=== PATIENT | male | born 1950 | race Caucasian/White ===

== ENCOUNTER 2018-05-04 07:51 | Outpatient (CLI) | payer MEDICARE, SELFPAY | END 2018-05-04 08:11 | PROVIDERS: PCP Family Medicine; Visit Provider Student in an Organized Health Care Education/Training Program | DX: M17.12 Unilateral primary osteoarthritis, left knee (principal) | CPT/HCPCS: 99204; 99214 ==

== ENCOUNTER 2018-05-08 09:23 | Emergency (ER) | payer OTHER, MEDICARE, SELFPAY ==
[2018-05-08 09:31] VITALS: BP 156/84; PULSE 79; RESP 18; TEMP 36.5; O2SAT 98
--- NOTE | 2018-05-08 09:56 | W.ED.GENAD ---
Discharge Plan Disposition Patient Disposition: HOME Condition: Fair Discharge Details Chief Complaint: Nk/Back Pain Clinical Impression: Fracture of rib of left side Primary Care Provider: Chung Escoto ED Provider: Subha Novoa Home Meds and New Rx's Prescriptions: New acetaminophen [Tylenol Extra Strength] 500 mg tablet 1,000 mg PO TID PRN (Reason: pain) Qty: 20 RF: 0 ibuprofen 600 mg tablet 600 mg PO QID PRN (Reason: pain) Qty: 20 RF: 0 oxycodone 5 mg tablet 5 mg PO Q6H PRN (Reason: pain) Qty: 10 RF: 0 Continue aspirin [Ecotrin Low Strength] 81 MG tablet,delayed release (DR/EC) 1 tab PO DAILY RF: 0 clindamycin HCl 300 MG capsule 1 cap PO DIRECTED Qty: 2 RF: 3 Atorvastatin Calcium 20 MG tablet 20 mg PO DAILY Qty: 90 RF: 4 Metoprolol Succinate [Toprol Xl] 50 MG TAB.ER.24H 1 tab PO DAILY Qty: 90 RF: 4 nystatin 1 EACH powder 1 tsp PO QID Qty: 120 RF: 1 calcium carbonate-mag hydroxid [Rolaids] 1 TAB tablet,chewable 1 tab PO PRN PRNRF: 0 Discontinued acetaminophen [Tylenol Extra Strength] 500 MG tablet 2 tab PO PRN RF: 0 Discharge Instructions Instructions: Oxycodone, Rapid Release (By mouth), Rib Fracture (ED) Additional Instructions: Encourage hydration. Tylenol and/or ibuprofen as needed as prescribed. Oxycodone as prescribed. Please take this only as prescribed and keep this in a safe place. You may not drive while taking this medication. Today to schedule appointment for next week. Please use incentive spirometer as instructed by respiratory therapy. No shortness of breath, difficulty breathing, fever/chills or other new/worsening symptoms please seek care urgently once again. Stand Alone Forms: Work Release Referrals: Chung Escoto MD [Primary Care Provider] - ( ) Discharge Data Discharge Date/Time-TO BE ENTERED AT DEPARTURE: 05/08/18 11:45 Medical Decision Making Patient is 67-year-old gentleman, accompanied by his , with chief complaint of left-sided back pain. He reports that 2 days ago he slipped in the leaves outside and fell landing on the afflicted area. He denies any altered sensation. No change in bowel or bladder habits. Denies any difficulty breathing but does endorse discomfort when blowing his nose or coughing. On exam, patient has a focal area of swelling approximate the 8 cm x 5 cm in diameter. No ecchymosis or discoloration. No rash. Lungs are clear in all medina. Area of swelling and maximal tenderness is quite focal over the posterior aspect of the ribs running from approximately the fourth rib through the seventh ribs. No pain elicited with AP or lateral chest wall compression. No CVA tenderness. Sensation is intact in extremities, no saddle paresthesias. 5 out of 5 strength equal bilaterally in the lower extremities. Patient appears quite comfortable when he is sitting. However, when I was trying to have the patient perform range of motion exercises his legs suddenly buckled. He reports that this is from a sharp pain in the focal areas described above. Patient is taking 400 mg of ibuprofen intermittently over the past 2 days. Plan to augment this with further anti-inflammatory, Lidoderm patch, Tylenol and oral oxycodone. Will reassess the patient after this. Plan to obtain x-ray of the patient's left ribs as I am concerned for possible fracture X-ray reviewed by radiologist. Notable for a nondisplaced left posterolateral sixth rib fracture. Lungs are expanded with no pneumothorax noted After patient received above medication, he reports that his pain is a 2/10. Patient is more comfortable. Patient I discussed imaging finding as well as expected course and pathology. Patient will be given an incentive spirometer and taught to use this by respiratory therapy. Encourage deep breathing. Encourage hydration. Advised Tylenol and/or ibuprofen as needed for discomfort. We discussed topical patches that may help with symptomatic management. Patient will be prescribed oxycodone. We did discuss the risk/benefits and safety associated with this medication. Advise follow-up with primary care next week. 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 At this point, patient will not tolerate this. He will be cleared from work until reevaluated by his primary care at which time the patient is hoping to be able to go back light duty. We discussed new/worsening symptoms when to seek care urgently once again. All his questions and concerns were addressed and he is in agreement this plan. HPI General Mode of arrival: ambulatory. Date/Time Provider Initiated Documentation: 05/08/18 09:40. Limitations to Documentation: no limitations. Information obtained by: patient and family. History of Present Illness 67 year old M presents to the emergency department with the chief complaint of left posterior rib pain, described as severe, with intensity rated at 10. Quality is described as stabbing, and is localized to the back. Patient reports no radiation; denies neck, extremity, abdomen and flank. Patient started experiencing this day(s) (2) and it has been constant. Immobilization improves symptom(s), Movement worsens symptoms . Patient notes no other symptoms.; denies chest pain, cough, diaphoresis, fever/chills, headaches, loss of appetite, malaise, nausea/vomiting, rash, shortness of breath and syncope. Patient did receive the following treatments prior to arrival, NSAID (400mg Ibuprofen) Related Data Home Medications Medication Instructions Recorded Confirmed aspirin [Ecotrin Low Strength] 1 tab PO DAILY tab-cap 11/13/12 05/08/18 clindamycin HCl 1 cap PO DIRECTED #2 cap 09/02/14 05/08/18 calcium carbonate-mag hydroxid 1 tab PO PRN PRN 09/09/14 05/08/18 [Rolaids] nystatin 1 tsp PO QID #120 ml 10/16/17 05/08/18 acetaminophen [Tylenol Extra 1,000 mg PO TID PRN #20 tab 05/08/18 Strength] ibuprofen 600 mg PO QID PRN #20 tab 05/08/18 oxycodone 5 mg PO Q6H PRN #10 tab 05/08/18 Previous Rx's Medication Instructions Recorded nystatin 1 tsp PO QID #120 ml 10/16/17 acetaminophen [Tylenol Extra 1,000 mg PO TID PRN #20 tab 05/08/18 Strength] ibuprofen 600 mg PO QID PRN #20 tab 05/08/18 oxycodone 5 mg PO Q6H PRN #10 tab 05/08/18 Allergies Allergy/AdvReac Type Severity Reaction Status Date / Time amoxicillin AdvReac Mild diarrhea Unverified 05/08/18 10:15 General Stated Complaint: Nk/Back Pain LIBBY: 4 Review of Systems Constitutional Reports as per HPI, Denies chills, Denies fatigue, Denies fever(s), Denies headache(s) and Denies weakness ENT Denies vertigo, Denies dizziness and Denies headache(s) Cardiovascular Reports as per HPI, Denies chest pain, Denies syncope, Denies lightheadedness, Denies dyspnea and Denies dyspnea on exertion Respiratory Reports as per HPI, Denies cough, Reports pain on inspiration, Reports pain with cough, Denies dyspnea and Denies dyspnea on exertion Gastrointestinal Denies abdominal pain, Denies change in stool character, Denies nausea and Denies vomiting Genitourinary Denies urinary hesitancy and Denies urinary incontinence Musculoskeletal Reports as per HPI, Denies abnormal gait, Denies numbness and Denies tingling Integumentary/Breasts Denies lesions, Denies erythema, Denies rash and Reports skin swelling Neurologic Denies abnormal gait, Denies vertigo, Denies dizziness, Denies syncope, Denies headache(s), Denies lack of coordination, Denies numbness, Denies radicular pain, Denies sensory deficit, Denies tingling, Denies paresthesias and Denies weakness Endocrine Denies fatigue PFSH Family History Mother Essential hypertension Father COPD (chronic obstructive pulmonary disease) Grandfather Personal history of malignant neoplasm Grandfather Cerebrovascular accident Grandmother No problems noted. Grandmother No problems noted. Sister No problems noted. Brother No problems noted. Brother No problems noted. Brother No problems noted. Social History Smoking/Tobacco Use Status: Former Tobacco Use Surgical History Cholecystectomy (10/05/14) Colonoscopy - MAC (07/09/17) ERCP (10/06/14) Repair of umbilical hernia (08/19/17) Valve Replacement (~07/2004) drainage of intraabdominal abscess (05/19/17) gall bladder vericose veins ablation Exam Const General: cooperative, healthy appearing, comfortable, no acute distress, well developed and well groomed Nutritional Appearance: average body habitus and well nourished Orientation: alert and awake Eyes General: appearance normal, both eyes and all related structures Neck Neck: normal visual inspection, full ROM, nontender and no torticollis Chest Chest: normal palpation of entire chest wall, no crepitus, tenderness (patient has focal tenderness and swelling over the posterior lateral ribs, swelling extends from 4-7ribs. No discoloration. Point tenderness maximal over the #6 ribs. No pain with AP or lateral compression) and No rash Resp Effort & Inspection: normal respiratory effort, able to speak in complete sentences and no respiratory distress Auscultation: clear to auscultation bilaterally, no rales, no rhonchi and no wheezes Cardio Rate: regular rate Rhythm: regular rhythm Heart Sounds: S1 normal and S2 normal GI Inspection: normal to inspection Palpation: soft and nontender Back/Spine/Pelvis Back: no CVA tenderness Cervical Spine: normal cervical lordosis and cervical ROM normal Thoracic/Lumbar Spine: thoracic and lumbar spine normal to inspection, No surgical scar(s) present, No bend over test abnormal (with forward flexion, patient has severe point tenderness over the area of posterior lateral rib pain as above. No pain over the midline.), thoraco-lumbar ROM limited (as above, pain over the area of point tender ribs), No thoraco-lumbar spasm, No thoracic spinal tenderness and No lumbar spinal tenderness Pelvis: no pain with anterior-posterior compression and no pain with lateral compression Sacroiliac joints: not on the right and not on the left Sacrum: no ecchymosis and no erythema Skin General skin exam: no rashes or lesions noted and elasticity normal Lesions: no lesions Rashes: no rashes Trauma: no lacerations or abrasions Wounds: no wounds Neuro General: alert, awake and oriented x3 Cranial Nerves: CN's II-XI intact bilaterally Cognition: normal cognition Speech: speech normal Gait: normal gait Motor: muscle tone normal throughout and strength 5/5 throughout Sensory Exam: no sensory deficits noted (no saddle paresthesias) Extrem General: normal to inspection Psych Appearance: grossly normal and well kempt Mental Status: mental status grossly normal Speech and Movement: speech and movement normal Mood: congruent mood Course Vital Signs Temperature 36.5 C 05/08/18 09:31 Pulse 79 05/08/18 09:31 Respiratory Rate 79 H 05/08/18 09:31 Blood Pressure 156/84 H 05/08/18 09:31 Pulse Oximetry 98 05/08/18 09:31 Temperature 36.5 C 05/08/18 09:31 Temperature Source Skin 05/08/18 09:31 Pulse 79 05/08/18 09:31 Respiratory Rate 79 H 05/08/18 09:31 Blood Pressure 156/84 H 05/08/18 09:31 Blood Pressure Position Sitting 05/08/18 09:31 Pulse Oximetry 98 05/08/18 09:31 Oxygen Delivery Method Room Air 05/08/18 09:31 Oxygen Flow Rate 0 05/08/18 09:31 Pain Level 4 05/08/18 09:31 Comment 05/08/18 09:31
--- NOTE | 2018-05-08 10:00 | ED.GENADUL_ITS ---
Discharge Plan Disposition Patient Disposition: HOME Condition: Fair Discharge Details Chief Complaint: Nk/Back Pain Clinical Impression: Fracture of rib of left side Primary Care Provider: Chung Escoto ED Provider: Subha Novoa Home Meds and New Rx's Prescriptions: New acetaminophen [Tylenol Extra Strength] 500 mg tablet 1,000 mg PO TID PRN (Reason: pain) Qty: 20 RF: 0 ibuprofen 600 mg tablet 600 mg PO QID PRN (Reason: pain) Qty: 20 RF: 0 oxycodone 5 mg tablet 5 mg PO Q6H PRN (Reason: pain) Qty: 10 RF: 0 Continue aspirin [Ecotrin Low Strength] 81 MG tablet,delayed release (DR/EC) 1 tab PO DAILY RF: 0 clindamycin HCl 300 MG capsule 1 cap PO DIRECTED Qty: 2 RF: 3 Atorvastatin Calcium 20 MG tablet 20 mg PO DAILY Qty: 90 RF: 4 Metoprolol Succinate [Toprol Xl] 50 MG TAB.ER.24H 1 tab PO DAILY Qty: 90 RF: 4 nystatin 1 EACH powder 1 tsp PO QID Qty: 120 RF: 1 calcium carbonate-mag hydroxid [Rolaids] 1 TAB tablet,chewable 1 tab PO PRN PRNRF: 0 Discontinued acetaminophen [Tylenol Extra Strength] 500 MG tablet 2 tab PO PRN RF: 0 Discharge Instructions Instructions: Oxycodone, Rapid Release (By mouth), Rib Fracture (ED) Additional Instructions: Encourage hydration. Tylenol and/or ibuprofen as needed as prescribed. Oxycodone as prescribed. Please take this only as prescribed and keep this in a safe place. You may not drive while taking this medication. Today to schedule appointment for next week. Please use incentive spirometer as instructed by respiratory therapy. No shortness of breath, difficulty breathing , fever/chills or other new/worsening symptoms please seek care urgently once again. Stand Alone Forms: Work Release Referrals: Chung Escoto MD [Primary Care Provider] - ( ) Discharge Data Discharge Date/Time-TO BE ENTERED AT DEPARTURE: 05/08/18 11:45 Medical Decision Making Patient is 67-year-old gentleman, accompanied by his , with chief complaint of left-sided back pain. He reports that 2 days ago he slipped in the leaves outside and fell landing on the afflicted area. He denies any altered sensation. No change in bowel or bladder habits. Denies any difficulty breathing but does endorse discomfort when blowing his nose or coughing. On exam, patient has a focal area of swelling approximate the 8 cm x 5 cm in diameter. No ecchymosis or discoloration. No rash. Lungs are clear in all medina. Area of swelling and maximal tenderness is quite focal over the posterior aspect of the ribs running from approximately the fourth rib through the seventh ribs. No pain elicited with AP or lateral chest wall compression. No CVA tenderness. Sensation is intact in extremities, no saddle paresthesias. 5 out of 5 strength equal bilaterally in the lower extremities. Patient appears quite comfortable when he is sitting. However, when I was trying to have the patient perform range of motion exercises his legs suddenly buckled. He reports that this is from a sharp pain in the focal areas described above. Patient is taking 400 mg of ibuprofen intermittently over the past 2 days. Plan to augment this with further anti-inflammatory, Lidoderm patch, Tylenol and oral oxycodone. Will reassess the patient after this. Plan to obtain x- ray of the patient's left ribs as I am concerned for possible fracture X-ray reviewed by radiologist. Notable for a nondisplaced left posterolateral sixth rib fracture. Lungs are expanded with no pneumothorax noted After patient received above medication, he reports that his pain is a 2/10. Patient is more comfortable. Patient I discussed imaging finding as well as expected course and pathology. Patient will be given an incentive spirometer and taught to use this by respiratory therapy. Encourage deep breathing. Encourage hydration. Advised Tylenol and/or ibuprofen as needed for discomfort. We discussed topical patches that may help with symptomatic management. Patient will be prescribed oxycodone. We did discuss the risk/ benefits and safety associated with this medication. Advise follow-up with primary care next week. 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 At this point, patient will not tolerate this. He will be cleared from work until reevaluated by his primary care at which time the patient is hoping to be able to go back light duty. We discussed new/worsening symptoms when to seek care urgently once again. All his questions and concerns were addressed and he is in agreement this plan. HPI General Mode of arrival: ambulatory . Date/Time Provider Initiated Documentation: 05/08/18 09:40 . Limitations to Documentation: no limitations . Information obtained by: patient and family . History of Present Illness 67 year old M presents to the emergency department with the chief complaint of left posterior rib pain, described as severe, with intensity rated at 10. Quality is described as stabbing, and is localized to the back. Patient reports no radiation; denies neck, extremity, abdomen and flank. Patient started experiencing this day(s) (2) and it has been constant. Immobilization improves symptom(s), Movement worsens symptoms . Patient notes no other symptoms.; denies chest pain, cough, diaphoresis, fever/chills, headaches, loss of appetite, malaise, nausea/vomiting, rash, shortness of breath and syncope. Patient did receive the following treatments prior to arrival, NSAID (400mg Ibuprofen) Related Data Home Medications Medication Instructions Recorded Confirmed aspirin [Ecotrin Low Strength] 1 tab PO DAILY tab-cap 11/13/12 05/08/18 clindamycin HCl 1 cap PO DIRECTED #2 cap 09/02/14 05/08/18 calcium carbonate-mag hydroxid 1 tab PO PRN PRN 09/09/14 05/08/18 [Rolaids] nystatin 1 tsp PO QID #120 ml 10/16/17 05/08/18 acetaminophen [Tylenol Extra 1,000 mg PO TID PRN #20 tab 05/08/18 Strength] ibuprofen 600 mg PO QID PRN #20 tab 05/08/18 oxycodone 5 mg PO Q6H PRN #10 tab 05/08/18 Previous Rx's Medication Instructions Recorded nystatin 1 tsp PO QID #120 ml 10/16/17 acetaminophen [Tylenol Extra 1,000 mg PO TID PRN #20 tab 05/08/18 Strength] ibuprofen 600 mg PO QID PRN #20 tab 05/08/18 oxycodone 5 mg PO Q6H PRN #10 tab 05/08/18 Allergies Allergy/AdvReac Type Severity Reaction Status Date / Time amoxicillin AdvReac Mild diarrhea Unverified 05/08/18 10:15 General Stated Complaint: Nk/Back Pain LIBBY: 4 Review of Systems Constitutional Reports as per HPI, Denies chills, Denies fatigue, Denies fever(s), Denies headache(s) and Denies weakness ENT Denies vertigo, Denies dizziness and Denies headache(s) Cardiovascular Reports as per HPI, Denies chest pain, Denies syncope, Denies lightheadedness, Denies dyspnea and Denies dyspnea on exertion Respiratory Reports as per HPI, Denies cough, Reports pain on inspiration, Reports pain with cough, Denies dyspnea and Denies dyspnea on exertion Gastrointestinal Denies abdominal pain, Denies change in stool character, Denies nausea and Denies vomiting Genitourinary Denies urinary hesitancy and Denies urinary incontinence Musculoskeletal Reports as per HPI, Denies abnormal gait, Denies numbness and Denies tingling Integumentary/Breasts Denies lesions, Denies erythema, Denies rash and Reports skin swelling Neurologic Denies abnormal gait, Denies vertigo, Denies dizziness, Denies syncope, Denies headache(s), Denies lack of coordination, Denies numbness, Denies radicular pain , Denies sensory deficit, Denies tingling, Denies paresthesias and Denies weakness Endocrine Denies fatigue PFSH Family History Mother Essential hypertension Father COPD (chronic obstructive pulmonary disease) Grandfather Personal history of malignant neoplasm Grandfather Cerebrovascular accident Grandmother No problems noted. Grandmother No problems noted. Sister No problems noted. Brother No problems noted. Brother No problems noted. Brother No problems noted. Social History Smoking/Tobacco Use Status: Former Tobacco Use Surgical History Cholecystectomy (10/05/14) Colonoscopy - MAC (07/09/17) ERCP (10/06/14) Repair of umbilical hernia (08/19/17) Valve Replacement (~07/2004) drainage of intraabdominal abscess (05/19/17) gall bladder vericose veins ablation Exam Const General: cooperative, healthy appearing, comfortable, no acute distress, well developed and well groomed Nutritional Appearance: average body habitus and well nourished Orientation: alert and awake Eyes General: appearance normal, both eyes and all related structures Neck Neck: normal visual inspection, full ROM, nontender and no torticollis Chest Chest: normal palpation of entire chest wall, no crepitus, tenderness (patient has focal tenderness and swelling over the posterior lateral ribs, swelling extends from 4-7ribs. No discoloration. Point tenderness maximal over the #6 ribs. No pain with AP or lateral compression) and No rash Resp Effort & Inspection: normal respiratory effort, able to speak in complete sentences and no respiratory distress Auscultation: clear to auscultation bilaterally, no rales, no rhonchi and no wheezes Cardio Rate: regular rate Rhythm: regular rhythm Heart Sounds: S1 normal and S2 normal GI Inspection: normal to inspection Palpation: soft and nontender Back/Spine/Pelvis Back: no CVA tenderness Cervical Spine: normal cervical lordosis and cervical ROM normal Thoracic/Lumbar Spine: thoracic and lumbar spine normal to inspection, No surgical scar(s) present, No bend over test abnormal (with forward flexion, patient has severe point tenderness over the area of posterior lateral rib pain as above. No pain over the midline.), thoraco-lumbar ROM limited (as above, pain over the area of point tender ribs), No thoraco-lumbar spasm, No thoracic spinal tenderness and No lumbar spinal tenderness Pelvis: no pain with anterior-posterior compression and no pain with lateral compression Sacroiliac joints: not on the right and not on the left Sacrum: no ecchymosis and no erythema Skin General skin exam: no rashes or lesions noted and elasticity normal Lesions: no lesions Rashes: no rashes Trauma: no lacerations or abrasions Wounds: no wounds Neuro General: alert, awake and oriented x3 Cranial Nerves: CN's II-XI intact bilaterally Cognition: normal cognition Speech: speech normal Gait: normal gait Motor: muscle tone normal throughout and strength 5/5 throughout Sensory Exam: no sensory deficits noted (no saddle paresthesias) Extrem General: normal to inspection Psych Appearance: grossly normal and well kempt Mental Status: mental status grossly normal Speech and Movement: speech and movement normal Mood: congruent mood Course Vital Signs Temperature 36.5 C 05/08/18 09:31 Pulse 79 05/08/18 09:31 Respiratory Rate 79 H 05/08/18 09:31 Blood Pressure 156/84 H 05/08/18 09:31 Pulse Oximetry 98 05/08/18 09:31 Temperature 36.5 C 05/08/18 09:31 Temperature Source Skin 05/08/18 09:31 Pulse 79 05/08/18 09:31 Respiratory Rate 79 H 05/08/18 09:31 Blood Pressure 156/84 H 05/08/18 09:31 Blood Pressure Position Sitting 05/08/18 09:31 Pulse Oximetry 98 05/08/18 09:31 Oxygen Delivery Method Room Air 05/08/18 09:31 Oxygen Flow Rate 0 05/08/18 09:31 Pain Level 4 05/08/18 09:31 Comment 05/08/18 09:31
[2018-05-08] MEDS: oxyCODONE 5 MG TAB PO (10:06)
[2018-05-08] MEDS: Ibuprofen 400 MG TAB PO (10:07)
[2018-05-08] MEDS: Acetaminophen 500 MG TAB 1000 MG PO (10:07)
[2018-05-08] MEDS: Lidocaine 5% Patch 1 PATCH TP (10:10)
--- NOTE | 2018-05-08 10:37 | DI.RAD_ITS ---
SYMPTOM/DIAGNOSIS: FELL, LT RIB PAIN LEFT RIBS AND PA CHEST: PA view of the chest and five views of the left ribs were obtained. The heart is enlarged. There appears to be mitral valve prosthesis. Lungs are clear and well expanded with no pneumothorax. There is deformity of the left sixth rib posterolaterally which appears to represent a nondisplaced acute fracture. No other rib fracture is seen. No pneumothorax or pleural effusion. CONCLUSION: Findings consistent with nondisplaced left posterolateral sixth rib fracture.
[2018-05-08 11:40] VITALS: BP 126/67; PULSE 79; O2SAT 96
[2018-05-08 11:44] VITALS: BP 126/67; PULSE 79; RESP 18; O2SAT 96
== END 2018-05-08 11:45 | disposition home or self-care (01) ==
PROVIDERS: Emergency Provider Physician Assistant; PCP Family Medicine
DX: S22.32XA Fracture of one rib, left side, initial encounter for closed fracture (principal); W01.0XXA Fall on same level from slipping, tripping and stumbling without subsequent striking against object, initial encounter
CPT/HCPCS: 71101; 99283

== ENCOUNTER 2018-09-29 02:31 | Outpatient (CLI) | payer OTHER, SELFPAY ==
[2018-09-29 11:30] LABS: Anion Gap 7.2 mmol/L (3-11); BUN 21 mg/dL (7-18); CO2 31.8 mmol/L (21.0-32.0); CREATININE 1.16 mg/dL (0.70-1.30); Calcium 8.9 mg/dL (8.5-10.1); Chloride 103 mmol/L (98-107); Glucose 100 mg/dL (70-100); Potassium 4.3 mmol/L (3.5-5.1); Sodium 142 mmol/L (136-145)
== END 2018-09-29 02:51 ==
PROVIDERS: PCP Family Medicine; Visit Provider Family Medicine
DX: I10 Essential (primary) hypertension (principal)
CPT/HCPCS: 36415; 80048

== ENCOUNTER 2018-09-30 01:26 | Outpatient (CLI) | payer OTHER, SELFPAY ==
--- NOTE | 2018-09-30 11:41 | DI.MRI_ITS ---
SYMPTOMS/DIAGNOSIS: RECURRENT SHARP PAIN MEDIAL SIDE LT KNEE MRI OF THE LEFT KNEE: Routine noncontrast examination was performed. The anterior cruciate ligament appears intact as does the posterior cruciate ligament. The medial and lateral collateral ligaments, extensor mechanism and medial and lateral retinaculum are all intact in addition to the popliteus tendon. There is a tear of the body and posterior horn of the medial meniscus. The lateral meniscus is intact. There is thinning of the articular cartilage in the medial femoral tibial joint space and subchondral edema in the bone. The articular cartilage is otherwise well maintained. No evidence of an acute fracture or avascular necrosis is present. There is a small amount of fluid in the joint space. No significant popliteal cyst is seen. Varicosities are seen in the medial soft tissues. IMPRESSION: Tear of the body and posterior horn of the medial meniscus.
== END 2018-09-30 01:46 ==
PROVIDERS: PCP Family Medicine; Visit Provider Family Medicine
DX: M25.562 Pain in left knee (principal); S83.242A Other tear of medial meniscus, current injury, left knee, initial encounter
CPT/HCPCS: 73721

== ENCOUNTER 2019-09-30 02:25 | Outpatient (CLI) | payer OTHER, SELFPAY ==
[2019-09-30 13:00] LABS: Anion Gap 5.9 mmol/L (3-11); BUN 19 mg/dL (7-18); CO2 31.1 mmol/L (21.0-32.0); CREATININE 1.19 mg/dL (0.70-1.30); Calcium 8.9 mg/dL (8.5-10.1); Chloride 106 mmol/L (98-107); Glucose 108 mg/dL (74-106); Potassium 4.5 mmol/L (3.5-5.1); Sodium 143 mmol/L (136-145)
== END 2019-09-30 02:45 ==
PROVIDERS: PCP Family Medicine; Visit Provider Family Medicine
DX: I10 Essential (primary) hypertension (principal)
CPT/HCPCS: 36415; 80048

== ENCOUNTER 2020-10-11 02:58 | Outpatient (CLI) | payer MEDICARE, BC, MEDICAID, SELFPAY ==
[2020-10-12 14:19] LABS: COVID-19 RT-PCR UVMMC Result Negative (Negative)
== END 2020-10-11 02:59 | disposition home or self-care (01) ==
LOC: LBO 02:58
PROVIDERS: PCP Family Medicine; Visit Provider Family Medicine
DX: Z20.822 Contact with and (suspected) exposure to COVID-19 (principal)
CPT/HCPCS: U0003; U0005

== ENCOUNTER 2021-02-01 10:14 | Outpatient (CLI) | payer MEDICARE, BC, SELFPAY ==
[2021-02-01 13:10] LABS: ALT 21 U/L (16-63); AST 19 U/L (15-37); Alkaline Phosphatase 56 U/L (46-116); Anion Gap 7.7 mmol/L (3-11); BUN 15 mg/dL (7-18); Bilirubin, Total 0.9 mg/dL (0.2-1.0); CO2 29.3 mmol/L (21.0-32.0); CREATININE 1.2 mg/dL (0.70-1.30); Calcium 8.9 mg/dL (8.5-10.1); Calculated LDL 63 mg/dL (<100); Chloride 105 mmol/L (98-107); Cholesterol 148 mg/dL (<200); Estimated GFR 59.68 (mL/min/1.73m2); Glucose 97 mg/dL (74-106); HDL Cholesterol 74 mg/dL (40-60); Potassium 4.6 mmol/L (3.5-5.1); Sodium 142 mmol/L (136-145); Total Protein 6.5 g/dL (6.4-8.2); Triglyceride 59 mg/dL (<150)
== END 2021-02-01 10:15 | disposition home or self-care (01) ==
LOC: LOS 10:15
PROVIDERS: PCP Family Medicine; Visit Provider Nurse Practitioner Family
DX: I10 Essential (primary) hypertension (principal)
CPT/HCPCS: 36415; 80053; 80061

== ENCOUNTER → 2022-04-23 13:11 | Outpatient (CLI) | payer MEDICARE, BC, SELFPAY ==
--- NOTE | 2022-04-23 12:00 | DI.RAD_ITS ---
Exam(s) XR LUMBAR SPINE COMPLETE EXAM: XR LUMBAR SPINE COMPLETE CLINICAL HISTORY: LOW BACK PAIN--M54.50, LUMBAR PAIN. TECHNIQUE: 2D digital imaging was performed of the lumbar spine. Five images were obtained. AP, la teral, right oblique, left oblique and L5-S1 spot views were obtained. COMPARISON: CT ABD PELVIS WITH CONTRAST from 10/03/2017 FINDINGS: BONES: No fracture or destructive lesion. Endplate osteophytes are seen at multiple levels of the lum bar spine particularly at T12-L1 and L1-L2. No facet hypertrophy identified. DISKS: There is disc space narrowing at T12-L1 and L1-L2. ALIGNMENT: Lumbar spinal alignment is within normal limits. There is L5 spondylolysis. No significan t spondylolisthesis. SOFT TISSUE: There are surgical clips in the right upper quadrant of the abdomen consistent with prio r cholecystectomy. IMPRESSION: [id number] lumbar spondylosis. DATA REPOSITORY: RADIATION DOSE DELIVERED:
== END ==
PROVIDERS: PCP Family Medicine; Visit Provider Nurse Practitioner Family
DX: M47.816 Spondylosis without myelopathy or radiculopathy, lumbar region (principal)
CPT/HCPCS: 72110

== ENCOUNTER 2022-12-11 01:53 | Outpatient (CLI) | payer MEDICARE, BC, SELFPAY ==
--- NOTE | 2022-12-11 08:45 | DI.RAD_ITS ---
Exam(s) XR CERVICAL SPINE COMP 4-5V EXAM: XR CERVICAL SPINE COMP 4-5V CLINICAL HISTORY: neck pain,m54.2. TECHNIQUE: 2D digital imaging was performed. COMPARISON: No exams were available for comparison FINDINGS: BONES: No fracture or destructive lesion. Vertebral bodies are unremarkable. DISKS: Question of partial fusion between the C3 and C4 the vertebral bodies. Moderate narrowing of the C4-5 disc space and small endplate osteophytes. Small endplate osteophytes project posteriorly a t C 5 6. Facet degenerative changes are noted throughout. There is neural foraminal narrowing on th e left at C4-5. There is neural foraminal narrowing on the right at C4-5 and C5-6. ALIGNMENT: Cervical spinal alignment is within normal limits. The odontoid and atlantoaxial articulat ions are normal. SOFT TISSUE: Normal. The lung apices are clear. IMPRESSION: Degenerative changes greatest at C4-5 and C5-6. DATA REPOSITORY: RADIATION DOSE DELIVERED:
== END 2022-12-11 02:13 ==
LOC: DI 01:53
PROVIDERS: PCP Family Medicine; Visit Provider Family Medicine
DX: M50.322 Other cervical disc degeneration at C5-C6 level
CPT/HCPCS: 72050

== ENCOUNTER 2023-02-20 02:39 | Outpatient (CLI) | payer MEDICARE, BC, SELFPAY ==
[2023-02-20 22:13] LABS: PSA, Screening 2.2 ng/mL (<=6.5)
[2023-02-21 10:54] LABS: Hepatitis C Ab w Rflx HCV PCR Negative (Negative)
== END 2023-02-20 02:40 | disposition home or self-care (01) ==
LOC: LOS 02:39
PROVIDERS: PCP Family Medicine; Visit Provider Family Medicine
DX: Z12.5 Encounter for screening for malignant neoplasm of prostate (principal); Z11.59 Encounter for screening for other viral diseases
CPT/HCPCS: 36415; 84153; 86803

== ENCOUNTER 2023-02-25 13:40 | Outpatient (REF) | payer MEDICARE, BC, SELFPAY ==
[2023-02-25 13:39] LABS: Bilirubin Negative (Negative); Blood Trace-intact (Negative); Clarity Clear (Clear); Glucose Negative (Negative); Ketones Negative (Negative); Leukocyte Esterase Negative (Negative); Nitrite Negative (Negative); Urobilinogen 0.2 mg/dL (Up to 0.2); pH 6.5 (5-8)
[2023-02-25 13:48] LABS: Bacteria Negative HPF (Negative); C & S Indicated? No; Casts Negative LPF (Negative); Crystals Negative HPF (Negative); Epithelial Cells Rare HPF (Negative); Mucus Negative (Negative); WBC 0-2 HPF (0-5)
== END 2023-02-25 13:41 | disposition home or self-care (01) ==
LOC: LBN 13:40
PROVIDERS: PCP Family Medicine; Visit Provider Nurse Practitioner Family
DX: N39.0 Urinary tract infection, site not specified (principal); R31.29 Other microscopic hematuria; R10.2 Pelvic and perineal pain
CPT/HCPCS: 81003; 81015

== ENCOUNTER 2025-03-10 04:18 | Outpatient (CLI) | payer MEDICARE, BC, SELFPAY ==
[2025-03-10 08:58] LABS: ALT 35 U/L (16-63); AST 23 U/L (15-37); Albumin 4.2 g/dL (3.4-5.0); Alkaline Phosphatase 88 U/L (46-116); Bilirubin, Direct 0.2 mg/dL (0.0-0.2); Bilirubin, Total 1.0 mg/dL (0.2-1.0); TSH (W/Ref FT4) 2.85 uIU/mL (0.36-3.74); Total Protein 7.2 g/dL (6.4-8.2)
== END 2025-03-10 04:19 | disposition home or self-care (01) ==
LOC: LBO 04:18
PROVIDERS: PCP Family Medicine; Visit Provider Student in an Organized Health Care Education/Training Program
DX: I48.19 Other persistent atrial fibrillation (principal); Z79.899 Other long term (current) drug therapy
CPT/HCPCS: 36415; 80076; 84443